=== PATIENT | female | born 1945 | race Caucasian/White ===

== ENCOUNTER 2022-01-17 22:37 | Inpatient (IN) ==
[2022-01-17 23:04] LABS: Basophils # 0.1 10*3/uL (0.0-0.2); Eosinophils # 0.3 10*3/uL (0.0-0.87); Eosinophils % 3.4 % (0.00-10.9); Hematocrit 41.4 VOL% (35.7-47.0); Hemoglobin 13.9 GM/DL (12.0-16.0); Immature Granulocytes % 0.5 %; Immature Granulocytes Absolute 0.04 #; Lymphocytes # 2.8 10*3/uL (1.4-4.0); Lymphocytes % 31.7 % (21.3-54.2); Mean Corpuscular HGB Conc 33.6 GM/DL (32-36); Mean Corpuscular Volume 88.5 FL (87-102); Mean Platelet Volume 9.1 FL (9.6-12.0); Monocytes # 0.8 10*3/uL (0.11-0.8); Monocytes % 9.4 % (1.7-12.7); Platelet Count 310 T/CUMM (130-400); Red Blood Count 4.68 MC/CUMM (3.8-5.5); Red Cell Distribution Width 13.2 % (9.3-17.3); White Blood Count 8.8 T/CUMM (4-12)
[2022-01-17 23:25] LABS: Albumin 4.2 G/DL (3.4-5.0); Bilirubin,Total 0.6 MG/DL (0.20-1.00); Calcium 9.5 MG/DL (8.5-10.1); Osmolality,Calculated 253.5 MOS/KG (273-304); Potassium 3.9 MMOL/L (3.5-5.1); Total Protein 7.2 G/DL (6.4-8.2)
[2022-01-17 23:39] LABS: PT Patient Result 10.6 SECS (10.5-12.0); Partial Thromboplastin Time 35.8 SECS (23.7-32.9)
[2022-01-18] MEDS ORDERED: MORPHINE 2 MG/1 ML SYRINGE IV STA
[2022-01-18] MEDS ORDERED: ONDANSETRON 4 MG/2 ML VIAL IV ONE
[2022-01-18] MEDS ORDERED: SODIUM CHLORIDE 0.9% 500 ML IV STA
[2022-01-18] MEDS ORDERED: PROMETHAZINE 25 MG/1 ML VIAL ONE (00:44)
[2022-01-18] MEDS ORDERED: PROMETHAZINE INJ 12.5 MG in SODIUM CHLORIDE 0.9% 50 ML IV STA (00:45)
[2022-01-18] MEDS ORDERED: SODIUM CHLORIDE 0.9% 1,000 ML IV STA (03:23)
[2022-01-18] MEDS ORDERED: MAGNESIUM SULF RIDER 1 GM/100 ML PREMIX IV STA (03:23)
[2022-01-18] MEDS ORDERED: ACETAMINOPHEN 325 MG TABLET PO PRN (04:47)
[2022-01-18] MEDS ORDERED: ONDANSETRON 4 MG/2 ML VIAL IV PRN (04:47)
[2022-01-18 08:30] LABS: Calcium 8.6 MG/DL (8.5-10.1); Osmolality,Calculated 244.9 MOS/KG (273-304); Potassium 4.4 MMOL/L (3.5-5.1)
[2022-01-18] MEDS ORDERED: SACUBITRIL/VALSARTAN 49-51 MG TABLET PO SCH (09:00)
[2022-01-18] MEDS: ASPIRIN EC 81 MG TABLET PO SCH (09:26)
[2022-01-18] MEDS: PANTOPRAZOLE 40 MG VIAL IV SCH (09:26)
[2022-01-18] MEDS: carvediloL 6.25 MG TABLET PO SCH ×2 (09:26→21:04)
[2022-01-18] MEDS: ENOXAPARIN 40 MG/0.4 ML SYRINGE SUBCUT SCH (09:28)
[2022-01-18 14:46] LABS: Calcium 8.7 MG/DL (8.5-10.1); Osmolality,Calculated 253.2 MOS/KG (273-304); Potassium 4.2 MMOL/L (3.5-5.1)
[2022-01-18] MEDS ORDERED: GABAPENTIN 100 MG CAPSULE PO SCH (21:00)
[2022-01-19 04:55] LABS: Basophils % 0.7 % (0.0-0.8); Eosinophils # 0.2 10*3/uL (0.0-0.87); Eosinophils % 4.4 % (0.00-10.9); Hematocrit 37.4 VOL% (35.7-47.0); Immature Granulocytes % 0.4 %; Immature Granulocytes Absolute 0.02 #; Lymphocytes # 1.8 10*3/uL (1.4-4.0); Lymphocytes % 32.5 % (21.3-54.2); Mean Corpuscular HGB Conc 32.1 GM/DL (32-36); Mean Corpuscular Volume 91.2 FL (87-102); Mean Platelet Volume 9.4 FL (9.6-12.0); Monocytes # 0.7 10*3/uL (0.11-0.8); Monocytes % 12.6 % (1.7-12.7); Neutrophils % 49.4 % (38.7-73.9); Platelet Count 204 T/CUMM (130-400); Red Cell Distribution Width 13.2 % (9.3-17.3); White Blood Count 5.5 T/CUMM (4-12)
[2022-01-19 05:16] LABS: Calcium 8.9 MG/DL (8.5-10.1); Osmolality,Calculated 260.5 MOS/KG (273-304); Potassium 3.7 MMOL/L (3.5-5.1)
[2022-01-19] MEDS: carvediloL 6.25 MG TABLET PO SCH (09:18)
[2022-01-19] MEDS: ASPIRIN EC 81 MG TABLET PO SCH (09:18)
[2022-01-19] MEDS: ENOXAPARIN 40 MG/0.4 ML SYRINGE SUBCUT SCH (09:21)
[2022-01-19] MEDS: PANTOPRAZOLE 40 MG VIAL IV SCH (10:14)
[2022-01-19 12:34] VITALS: BP 110/74
[2022-01-19] MEDS ORDERED: carvediloL 3.125 MG TABLET PO SCH (21:00)
[2022-01-19] MEDS ORDERED: busPIRone 10 MG TABLET PO SCH (21:00)
[2022-01-20] MEDS ORDERED: CITALOPRAM 20 MG TABLET PO SCH (09:00)
== END 2022-01-19 15:30 | disposition home or self-care (01) | DRG 641 ==
LOC: N.ED 22:37 → N.EDINP 22:37 → SUATTDRO 01-18 04:43 → N.EDINP 01-18 13:34 → N.TELEN 01-18 14:04
PROVIDERS: ADMIT Internal Medicine; ATTEND Hospitalist